=== PATIENT | female | born 1975 | race Caucasian/White ===

== ENCOUNTER 2016-08-14 16:21 | Emergency (ER) | payer SELFPAY ==
[~2016-08-14] VITALS: Ht 157.5 cm; Wt 81.6 kg
[2016-08-14 18:47] LABS: BASOPHIL % 0.3 % (0-2); PLATELET COUNT 365 x10^3mcL (130-400)
[2016-08-14 18:52] LABS: CALCIUM 8.9 mg/dL (8.5-10.1); CARBON DIOXIDE 29.5 mmol/L (21-32); CHLORIDE SERUM 100 mmol/L (98-107); CREATININE SERUM 0.5 mg/dL (0.6-1.0); GFR1 > 60 mL/min; GLUCOSE SERUM 181 mg/dL (74-106); POTASSIUM SERUM 3.8 mmol/L (3.5-5.1); SODIUM SERUM 135 mmol/L (136-145)
[2016-08-14 18:53] LABS: RED CELL DISTRIBUTION WIDTH 17.7 % (11.5-14.5)
[2016-08-14 19:04] LABS: ALKALINE PHOSPHATASE 162 U/L (46-116); ALT/SGPT 140 U/L (14-59); AST/SGOT 103 U/L (15-37); BILIRUBIN TOTAL 0.2 mg/dL (0.20-1.00); T4(THYROXINE) 10.5 ug/dL (4.7-13.3); TOTAL PROTEIN, SERUM 7.6 g/dL (6.4-8.2)
[2016-08-14 19:18] LABS: ALBUMIN 3.3 g/dL (3.4-5.0)
[2016-08-14 20:01] VITALS: BP 128/75
== END 2016-08-14 20:01 | disposition home or self-care (01) ==
LOC: ED 16:21
PROVIDERS: Emergency Medicine
DX: E11.649 Type 2 diabetes mellitus with hypoglycemia without coma (principal); N92.0 Excessive and frequent menstruation with regular cycle; I10 Essential (primary) hypertension; Z79.2 Long term (current) use of antibiotics; Z79.84 Long term (current) use of oral hypoglycemic drugs; Z79.899 Other long term (current) drug therapy; Z87.09 Personal history of other diseases of the respiratory system
CPT/HCPCS: 36415; 82962; 83880

== ENCOUNTER 2018-03-20 08:02 | Emergency (ER) | payer SELFPAY ==
[~2018-03-20] VITALS: Ht 154.9 cm; Wt 76.2 kg
[2018-03-20 08:15] VITALS: Ht 154.9 cm; Wt 76.2 kg
[2018-03-20 10:34] VITALS: BP 156/77
== END 2018-03-20 10:34 | disposition home or self-care (01) ==
LOC: ED 08:02
DX: J06.9 Acute upper respiratory infection, unspecified (principal); I10 Essential (primary) hypertension; E11.9 Type 2 diabetes mellitus without complications; E78.00 Pure hypercholesterolemia, unspecified; F32.9 Major depressive disorder, single episode, unspecified; Z88.2 Allergy status to sulfonamides
CPT/HCPCS: J1100

== ENCOUNTER 2019-07-05 06:18 | Day surgery (SDC) | payer OTHER, SELFPAY ==
[2019-07-02 11:39] LABS: UA SPECIFIC GRAVITY 1.025 (1.005-1.035); microscopic required? YES; urine erythrocyte TRACE (NEGATIVE)
[~2019-07-05] VITALS: Ht 152.4 cm; Wt 76.7 kg
[2019-07-05 06:40] VITALS: BP 135/80
[2019-07-05 13:09] VITALS: BP 116/69
== END 2019-07-05 12:20 | disposition home or self-care (01) ==
LOC: DS 06:18 → OR 08:30 → DS 08:30
PROVIDERS: Obstetrics & Gynecology
DX: D06.0 Carcinoma in situ of endocervix (principal); N72 Inflammatory disease of cervix uteri; I10 Essential (primary) hypertension; E11.9 Type 2 diabetes mellitus without complications; E78.5 Hyperlipidemia, unspecified; F41.9 Anxiety disorder, unspecified; F32.9 Major depressive disorder, single episode, unspecified; E66.9 Obesity, unspecified; Z68.32 Body mass index [BMI] 32.0-32.9, adult
CPT/HCPCS: 82962; J0690; J2250; J3010